=== PATIENT | female | born 1980 | race Caucasian/White ===

== ENCOUNTER 2017-04-22 08:53 | Emergency (ER) | payer OTHER ==
[~2017-04-22] VITALS: Ht 160 cm; Wt 76.2 kg
--- NOTE | 2017-04-22 09:25 | PHYS DOC ---
Adult General HPI HPI Patient is a 36 year old F who presents with dizziness. Patient states for the past 24 hours she's been dizzy and it's worse when she stands and better when she sits. Patient describes the symptoms as a room spinning with associated nausea and vomiting. Patient denies any fevers. Patient states she had episode of this 2 weeks ago and it self resolved. Patient denies a history of vertigo. Patient denies any chest pain or shortness of breath. Patient has no other complaints. Review of Systems Review of Systems GEN: Denies fevers, chills, sweats HEENT: Denies blurred vision, sore throat CV: Denies chest pain RESP: Denies shortness of air, cough GI: Denies n/v/d NEURO: dizziness MSK: Denies weakness, joint pain/swelling Current Medications Current Medications Current Medications Medications (Trade) Dose Ordered Sig/Ale Start Time Stop Time Status Last Admin Dose Admin Meclizine HCl (Antivert) 25 mg 1X ONCE 04/22/17 09:30 04/22/17 09:31 UNV Ondansetron HCl (Zofran) 4 mg 1X ONCE 04/22/17 09:30 04/22/17 09:31 UNV Sodium Chloride 1,000 ml @ 1,000 mls/hr 1X ONCE 04/22/17 09:30 04/22/17 10:29 UNV Physical Exam Physical Exam GEN.: Moderate distress. Alert and oriented. HEENT: Head is normocephalic, atraumatic NECK: Supple. LUNGS: CTAB. HEART: RRR, S1, S2 present. Peripheral pulses intact ABDOMEN: Soft, nontender. Positive bowel sounds. EXTREMITIES: Without any cyanosis. NEUROLOGIC: Normal speech, normal tone PSYCHIATRIC: Normal affect, normal mood. SKIN: No ulcerations Current Patient Data Lab Results Laboratory Tests Test 04/22/17 09:31 04/22/17 10:40 04/22/17 10:53 White Blood Count 5.0 x10^3/uL Red Blood Count 4.21 x10^6/uL Hemoglobin 13.4 g/dL Hematocrit 39.3 % Mean Corpuscular Volume 93 fL Mean Corpuscular Hemoglobin 32 pg Mean Corpuscular Hemoglobin Concent 34 g/dL Red Cell Distribution Width 12.3 % Platelet Count 265 x10^3/uL Neutrophils (%) (Auto) 61 % Lymphocytes (%) (Auto) 32 % Monocytes (%) (Auto) 7 % Eosinophils (%) (Auto) 1 % Basophils (%) (Auto) 1 % Neutrophils # (Auto) 3.0 x10^3uL Lymphocytes # (Auto) 1.6 x10^3/uL Monocytes # (Auto) 0.3 x10^3/uL Eosinophils # (Auto) 0.0 x10^3/uL Basophils # (Auto) 0.0 x10^3/uL Sodium Level 143 mmol/L Potassium Level 4.0 mmol/L Chloride Level 108 mmol/L Carbon Dioxide Level 27 mmol/L Anion Gap 8 Blood Urea Nitrogen 10 mg/dL Creatinine 0.9 mg/dL Estimated GFR (Cockcroft-Gault) 70.5 BUN/Creatinine Ratio 11 Glucose Level 100 mg/dL Calcium Level 8.4 mg/dL Total Bilirubin 1.0 mg/dL Aspartate Amino Transf (AST/SGOT) 24 U/L Alanine Aminotransferase (ALT/SGPT) 36 U/L Alkaline Phosphatase 66 U/L Total Protein 6.9 g/dL Albumin 3.8 g/dL Albumin/Globulin Ratio 1.2 Urine Collection Type Unknown Urine Color Yellow Urine Clarity Clear Urine pH 8.0 Urine Specific [place] 1.015 Urine Protein Neg Urine Glucose (UA) Neg mg/dL Urine Ketones (Stick) Neg mg/dL Urine Blood Small Urine Nitrite Neg Urine Bilirubin Neg Urine Urobilinogen Dipstick 0.2 mg/dL Urine Leukocyte Esterase Neg Urine RBC 1-2 /HPF Urine WBC Rare /HPF Urine Squamous Epithelial Cells Few /LPF Urine Bacteria 0 /HPF Bedside Urine HCG, Qualitative hcg negative Current Medications Medications (Trade) Dose Ordered Sig/Ale Route PRN Reason Start Time Stop Time Status Last Admin Dose Admin Sodium Chloride 1,000 ml @ 1,000 mls/hr 1X ONCE IV 04/22/17 09:30 04/22/17 10:29 DC 04/22/17 09:30 Meclizine HCl (Antivert) 25 mg 1X ONCE PO 04/22/17 09:55 04/22/17 09:56 DC 04/22/17 09:55 Ondansetron HCl (Zofran) 4 mg 1X ONCE IV 04/22/17 09:55 04/22/17 09:56 DC 04/22/17 09:55 EKG EKG 0937: EKG shows normal sinus rhythm rate of 65 no STEMI [] Radiology/Procedures Radiology/Procedures CT head: NAD[] Course & Med Decision Making Course & Med Decision Making Pertinent Labs and Imaging studies reviewed. (See chart for details) ED course: Patient was seen and examined the emergency room CBC, CMP, UA, EKG, CT scan of head without contrast was ordered 1115: Patient was reexamined and stated that she was feeling better however still had some mild dizziness but was ready to go home. Recommended patient follow PCP in one to 2 days. Patient has a ride home. MDM: After reviewing the chart, CC/HPI/PMH, physical exam, [lab results], [ radiological results], I do not believe the patient has emergent intracranial process warranting further workup and/or admission at this time. Due to the fact the dizziness improves when the patient sits down and gets worse when the patient stands up and it episodic I believe this is more consistent with vertigo than a central lesion. Patient is stable for discharge. Additional verbal discharge instructions were provided to the patient and that if symptoms get worse or any new symptoms arise that are worrisome to the patient she is to return to the emergency room immediately [] Dragon Disclaimer Dragon Disclaimer This chart was dictated in whole or in part using Voice Recognition software in a busy, high-work load, and often noisy Emergency Department environment. It may contain unintended and wholly unrecognized errors or omissions. Departure Departure: Impression: Primary Impression: Vertigo Additional Impression: Dizziness Disposition: 01 HOME, SELF-CARE Condition: IMPROVED Referrals: YUE MORIN (PCP) Patient Instructions: Dizziness, [id number] Additional Instructions: Please follow up with her family doctor next one to 2 days Scripts Meclizine Hcl (MECLIZINE HCL) 25 Mg Tablet 1 TAB PO PRN TID, #30 TAB Prov: ROSSY CARNES DO 04/22/17 Ondansetron (ZOFRAN ODT) 4 Mg Tab.rapdis 1 TAB SL Q8HRS, #10 TAB Prov: ROSSY CARNES DO 04/22/17 Problem Qualifiers ROSSY CARNES DO Apr 22, 2017 09:25
[2017-04-22] MEDS ORDERED: IV NORMAL SALINE 1,000ML 1,000 ML IV ONE (09:30)
[2017-04-22 09:48] LABS: BASO % 1 % (0-3); EOS % 1 % (0-3); HEMATOCRIT 39.3 % (36.0-47.0); HEMOGLOBIN 13.4 g/dL (12.0-15.5); LYMPH # 1.6 x10^3/uL (1.0-4.8); LYMPH % 32 % (24-48); MEAN CORPUSCULAR HEMOGLOBIN 32 pg (25-35); MEAN CORPUSCULAR HGB CONC 34 g/dL (31-37); MEAN CORPUSCULAR VOLUME 93 fL (79-100); MONO # 0.3 x10^3/uL (0.0-1.1); MONO % 7 % (0-9); NEUT % 61 % (31-73); PLATELET COUNT 265 x10^3/uL (140-400); RED BLOOD COUNT 4.21 x10^6/uL (3.50-5.40); RED CELL DISTRIBUTION WIDTH 12.3 % (11.5-14.5)
[2017-04-22] MEDS ORDERED: MECLIZINE 25 MG TABLET PO ONE (09:55)
[2017-04-22] MEDS ORDERED: ONDANSETRON PF 4 MG/2 ML VIAL. IV ONE (09:55)
[2017-04-22 10:02] LABS: ALBUMIN 3.8 g/dL (3.4-5.0); ALBUMIN/GLOBULIN RATIO 1.2 (1.0-1.7); CALCIUM 8.4 mg/dL (8.5-10.1); CREATININE 0.9 mg/dL (0.6-1.0); GFR 70.5; TOTAL PROTEIN 6.9 g/dL (6.4-8.2)
--- NOTE | 2017-04-22 10:09 | RAD ---
CT head without contrast 04/22/2017 Clinical indication: Dizziness with syncopal episode. Comparison: None. Technique: Multiple CT images of the head without contrast were obtained according to standard protocol. RS Compliance Statement: One or more of the following individualized dose reduction techniques were utilized for this examination: 1. Automated exposure control 2. Adjustment of the mA and/or kV according to patient size 3. Use of iterative reconstruction technique Head findings: Ventricles and subarachnoid spaces are normal in size and configuration. Martinez-white matter interfaces are maintained. No acute intracranial hemorrhage or extra-axial fluid collection. The basilar cisterns are patent. No midline shift. Visualized mastoid air cells and paranasal sinuses are within normal limits. Impression: No acute intracranial hemorrhage.
--- NOTE | 2017-04-22 10:23 | EKG ---
[address] [address] Test Date: 2017-04-22 Test Time: 09:37:37 Pat Name: CECILIO JANE Department: Room: Gender: F Pig Handler: : 1980 Requested By: ROSSY CARNES Order Number: [id number] Reading MD: Measurements Intervals [place] Rate: 65 P: 42 AR: 162 QRS: 34 QRSD: 72 T: 43 QT: 390 QTc: 406 Interpretive Statements SINUS RHYTHM NORMAL ECG RI6.01 Unconfirmed report No previous ECG available for comparison
[2017-04-22 11:02] LABS: BILIRUBIN,URINE NEG (NEG); CLARITY,URINE CLEAR; COLOR,URINE YELLOW; GLUCOSE,URINE NEG (NEG); NITRITE,URINE NEG (NEG); UROBILINOGEN,URINE 0.2 mg/dL (0.2 mg/dL)
[2017-04-22 11:03] LABS: BACTERIA,URINE 0 /HPF (0-FEW); SQUAMOUS EPITHELIAL CELL,UR FEW /LPF; WBC,URINE RARE /HPF (0-4)
[2017-04-22 11:20] VITALS: BP 98/59
[2017-04-22] MEDS ORDERED: MECL25TA3 PO (11:21)
[2017-04-22] MEDS ORDERED: ONDA4TAB10 SL (11:21)
== END 2017-04-22 11:30 | disposition home or self-care (01) ==
LOC: ER 08:53
DX: R42 Dizziness and giddiness (principal); R11.2 Nausea with vomiting, unspecified
CPT/HCPCS: 36415; 70450; 80053; 81001; 81025; 85027; 93005; 96361; 96374; 99285; J2405; J8597; 96360; J7030